=== PATIENT | male | born 1995 | race Caucasian/White ===

== ENCOUNTER 2024-01-04 14:30 | Emergency (ER) | payer SELFPAY ==
[~2024-01-04] VITALS: Ht 177.8 cm; Wt 81.8 kg
[2024-01-04] MEDS ORDERED: LR 1,000 ML IV ONE (14:45)
[2024-01-04] MEDS ORDERED: Ondansetron 4 MG/2 ML VIAL IV ONE (14:45)
[2024-01-04 15:02] LABS: BASO % 0.1 % (0.0-2.0); EOS # 0.1 K/mm3 (0.0-0.7); EOS % 1.1 % (0.0-4.0); GRAN # 6.3 K/mm3 (1.4-6.5); GRAN % 77.1 % (42.2-75.2); HEMATOCRIT 45.3 % (42.0-52.0); HEMOGLOBIN 16.2 g/dl (13.5-18.0); LYMPH # 1.2 K/mm3 (1.2-3.4); LYMPH % 14.8 % (20.0-51.0); MEAN CELL VOLUME 87 fl (80.0-100.0); MEAN CORPUSCULAR HEMOGLOBIN 31 pg (27-31); MEAN CORPUSCULAR HGB CONC 36 g/dl (33.0-37.0); MEAN PLATELET VOLUME 9.7 fl (7.4-10.4); MONO # 0.6 K/mm3 (0.1-0.6); MONO % 6.7 % (1.7-9.3); PLATELET COUNT 308 K/mm3 (130-400); RED BLOOD COUNT 5.23 M/mm3 (4.20-5.60)
[2024-01-04] MEDS ORDERED: Famotidine 20 MG TAB PO ONE (15:15)
[2024-01-04] MEDS ORDERED: Pantoprazole 40 MG in NS 10 ML IV ONE (15:15)
[2024-01-04] MEDS ORDERED: droPERidol 2.5 MG/ML 2 ML VIAL IV ONE (15:15)
[2024-01-04 15:16] LABS: BILIRUBIN,TOTAL 1.7 mg/dL (0.2-1.2); C-REACTIVE PROTEIN 0.07 mg/dL (0.00-0.50); CALCIUM 10.2 mg/dL (8.4-10.2); CREATININE, serum 1.04 mg/dL (0.72-1.25); POTASSIUM 3.7 mEq/L (3.5-4.5)
[2024-01-04 16:20] VITALS: BP 127/83; PULSE 58; TEMP 98.2
== END 2024-01-04 16:20 | disposition home or self-care (01) ==
LOC: COL.ER 14:30
PROVIDERS: Family Medicine
DX: K27.9 Peptic ulcer, site unspecified, unspecified as acute or chronic, without hemorrhage or perforation (principal); Z87.891 Personal history of nicotine dependence
CPT/HCPCS: J1790; J2405; J2470; J7120